=== PATIENT | male | born 1965 ===

== ENCOUNTER 2024-04-08 11:28 | Day surgery (SDC) | payer OTHER, SELFPAY ==
[2024-04-03 08:45] VITALS: BMI 28.8
[2024-04-08] VITALS (8 sets, daily range): BP systolic 82–147; BP diastolic 50–81; PULSE 56–84; RESP 13–16; TEMP 36.1–36.7; O2SAT 94–97; BMI 27.7
[2024-04-08] MEDS: LACTATED RINGERS 1,000 ML 42 ML IV (12:22)
[2024-04-08] MEDS: ACETAMINOPHEN 325 MG TABLET 975 MG PO (12:27)
--- NOTE | 2024-04-08 13:14 | PM.PREOP ---
Pre-operative Note COVID-19 COVID-19 status: Not tested Interval Note History & Physical reviewed/Exam performed by Physician: Yes Changes to H&P: No ASA Class (for procedural sedation): I
--- NOTE | 2024-04-08 13:24 | SUR.OPER ---
Supine on padded OR bed, head on pillow, arms padded and tucked at sides, PINK PAD UNDER PATIENT, legs uncrossed, safety belt at thigh, tape over blanket over lower legs .
[2024-04-08] MEDS: CEFAZOLIN 2 GM/100 ML PREMIX 100 ML IV (13:53)
[2024-04-08] MEDS: BUPIVACAINE 0.5% (PF) 30 ML, EPINEPHrine 0.15 MG INJ (15:07)
--- NOTE | 2024-04-08 15:21 | P.OP_ITS ---
Operative Date/Time/Diagnoses Date of procedure: 04/08/24 Time of procedure: 15:21 Pre-op diagnosis: Right inguinal hernia Post-op diagnosis: same Procedure & Clinicians Procedure: Laparoscopic right inguinal hernia repair with mesh Same procedure as scheduled: Yes Surgeon: Gama Mills Anesthesia Type: General Operative Notes Procedure in detail: The patient was given preoperative antibiotics. The patient was brought to the operating room, placed on the table in the supine position with the arms tucked and general anesthesia was induced. The abdomen was prepped and draped in the usual fashion. A time-out was performed. A 1 cm supraumbilical incision was c reated and dissection was carried down to the anterior sheath. The fascia was scored transversely with cautery. The inferior leaf of the fascia was grasped with a Rafy clamp to elevate abdominal wall and a Peon clamp was used to gardiner the peritoneum. The Jaelyn port was placed and the abdomen was insufflated to 15 mmHg. The camera was inserted, there was no evidence of any injury from the entry. There was a direct right inguinal hernia. 5 mm ports were placed under direct vision in the mid left and mid right abdomen. The patient was positioned in steep Trendelenburg. We created right peritoneal flap. The peritoneum was dissected off the right cord structures. A large right Bard mesh was brought in and placed over the defect with the medial edge against Lincoln's ligament. We then closed the peritoneal flap with a running 3- 0 barbed suture. We took one last look around the abdomen and saw no other abnormalities. The suture was removed and accounted for. The 5 mm ports were removed under direct vision. The abdomen was desufflated. The Jaelyn port was removed. Additional local was injected into the fascia and the fascial incision was closed with 2 interrupted 0 Vicryl sutures. The skin incisions were closed with 4 Monocryl, Steri-Strips and Band-Aids. EBL: 10 mL Post-operative Condition: stable Disposition: PACU
[2024-04-08] MEDS: BENZOCAINE/MENTHOL 1 LOZ PKT 1 EACH PO (15:45)
== END 2024-04-08 16:24 | disposition home or self-care (01) ==
PROVIDERS: PCP Registered Nurse; Referring Provider Surgery; Visit Provider Surgery
PROC: 0YQ54ZZ Repair Right Inguinal Region, Percutaneous Endoscopic Approach (ICD-10-PCS; CPT 49650; principal; 2024-04-08 13:00)
DX: K40.90 Unilateral inguinal hernia, without obstruction or gangrene, not specified as recurrent (principal)
CPT/HCPCS: 49650; J0171; J0690; J1100; J1885; J2250; J2405; J2704; J3010